=== PATIENT | male | born 1975 | race Caucasian/White ===

== ENCOUNTER 2017-07-02 11:52 | Emergency (ER) | payer OTHER ==
[2017-07-02 11:59] VITALS: BMI 31.8
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
[2017-07-02 12:20] VITALS: RESP 18; TEMP 98; O2SAT 98
--- NOTE | 2017-07-02 13:42 | CT ---
PROCEDURE: CT HEAD WITHOUT CONTRAST. HISTORY: injury COMPARISON: None available. TECHNIQUE: Axial computed tomography images were obtained through the head/brain without intravenous contrast. Radiation dose: Total exam DLP = 904.83 mGy-cm. This CT exam was performed using one or more of the following dose reduction techniques: Automated exposure control, adjustment of the mA and/or kV according to patient size, and/or use of iterative reconstruction technique. FINDINGS: HEMORRHAGE: No acute parenchymal, subarachnoid or extra-axial hemorrhage. . BRAIN: There appears be some minimal chronic periventricular white matter ischemic changes most conspicuous in the perifrontal horn regions. VENTRICLES: Unremarkable. No hydrocephalus. CALVARIUM: Unremarkable. PARANASAL SINUSES: Mild mucosal thickening seen within the ethmoid sinus extending superiorly into the inferior margin of the frontal sinus. There is also minor mucosal thickening within the sphenoid sinus. MASTOID AIR CELLS: The mastoid air complexes are slightly underpneumatized on and sclerotic. The OTHER FINDINGS: None. IMPRESSION: No acute intracranial hemorrhage. There appears be some minimal chronic periventricular white matter ischemic changes most conspicuous in the perifrontal horn regions.
--- NOTE | 2017-07-02 13:57 | RAD ---
PROCEDURE: Cervical Spine Radiographs. AP lateral and open-mouth views of the cervical spine performed. No prior study available for comparison. Note the examination is limited due to obscuration of the odontoid by overlying occiput in the open-mouth projections. HISTORY: Pain. COMPARISON: None. FINDINGS: BONES: No acute compression fractures no retropulsed fragments so far as can be seen within limitations of this exam. There is straightening of the normal cervical lordosis which could be due to a patient positioning and/or muscle spasm of. Vertebral bodies otherwise exhibit normal alignment. Facets normally aligned. Minor degenerative spondylosis noted at the C5-C6 level with small osteophyte formation arising from the posterior inferior corner of the C5 segment however disc space height is relatively maintained. . DISC SPACES: Disc space heights relatively maintained. SOFT TISSUES: Prevertebral soft tissues unremarkable OTHER FINDINGS: None. IMPRESSION: Limited study due to obscuration of the odontoid in the open-mouth projection. No acute fractures identified on given limitation of the study. . Mild degenerative spondylosis
[2017-07-02 14:14] VITALS: BP 110/72; PULSE 75
== END 2017-07-02 14:14 | disposition home or self-care (01) ==
LOC: SUPCPDRO 11:52 → C.ER 11:52
DX: S16.1XXA Strain of muscle, fascia and tendon at neck level, initial encounter (principal); S09.90XA Unspecified injury of head, initial encounter; V49.59XA Passenger injured in collision with other motor vehicles in traffic accident, initial encounter; Y92.410 Unspecified street and highway as the place of occurrence of the external cause